=== PATIENT | female | born 1970 | race Caucasian/White ===

== ENCOUNTER 2022-09-13 10:33 | Emergency (ER) | payer BC ==
[~2022-09-13] VITALS: Ht 172.7 cm; Wt 65.8 kg
[2022-09-13 10:51] VITALS: BP_SYST 115
[2022-09-13] MEDS ORDERED: MORPHINE 4 MG INJ. 4 MG/ML VIAL IM ONE (11:30)
[2022-09-13] MEDS ORDERED: BACITRACIN 1 GM OINT TP ONE (11:45)
[2022-09-13] MEDS ORDERED: HYDR-3917 PO (12:04)
[2022-09-13] MEDS ORDERED: IBUP-1969 PO (12:04)
[2022-09-13 12:21] VITALS: BP_SYST 132
== END 2022-09-13 12:21 | disposition home or self-care (01) ==
LOC: SED 10:33
DX: M25.512 Pain in left shoulder (principal); Z88.2 Allergy status to sulfonamides; Z79.899 Other long term (current) drug therapy
CPT/HCPCS: 99283; 73030; 96372; J2270